=== PATIENT | male | born 1940 | race Caucasian/White ===

== ENCOUNTER 2021-01-16 21:57 | Emergency (ER) | payer OTHER, SELFPAY ==
[2021-01-16 22:14] VITALS: BP 162/112; PULSE 88; RESP 16; TEMP 36.4; O2SAT 99; BMI 23.7
--- NOTE | 2021-01-16 22:37 | XRR_ITS ---
PROCEDURE INFORMATION: Exam: XR Chest Exam date and time: 01/16/2021 10:37 PM Age: 80 years old Clinical indication: Dyspnea; Prior surgery; Surgery date: 6+ months; Surgery type: Pacemaker; Additional info: SOB TECHNIQUE: Imaging protocol: XR of the chest. Views: 1 view. COMPARISON: CR Chest 1 [place] [id number] 07/11/2016 10:11 AM FINDINGS: Tubes, catheters and devices: Pacemaker. Lungs: Emphysematous changes. Right hilar to lower lobe atelectasis versus minimal infiltrate. Pleural spaces: Unremarkable. No pleural effusion. No pneumothorax. Heart/Mediastinum: Cardiomegaly. Vasculature: Tortuous aorta Bones/joints: Unremarkable. XR/XR chest 1V portable [id number] IMPRESSION: 1. Cardiomegaly. 2. Emphysematous changes. 3. Right hilar to lower lobe atelectasis versus minimal infiltrate. 4. Tortuous aorta
[2021-01-16 23:01] VITALS: BP 141/95; PULSE 70; RESP 18; O2SAT 98
[2021-01-16 23:04] LABS: Basophils # 0.1 10^3/uL (0.0-0.1); Basophils % 1.5 %; Eosinophils # 0.2 10^3/uL (0.0-0.8); Eosinophils % 2.7 %; Hemoglobin 15.7 g/dL (11.7-16.6); Lymphocytes # 1.5 10^3/uL (0.8-4.8); Mean Corpuscular Hemoglobin 29.7 pg (28.0-34.0); Mean Corpuscular Volume 92.8 fL (80-94); Mean Platelet Volume 10.7 fL (7.4-10.4); Monocytes # 0.7 10^3/uL (0.2-0.9); Monocytes % 10.2 %; Neutrophils # 4.56 10^3/uL (1.8-7.7); Nucleated Red Blood Cells % 0 %; Platelet Count 233 10^3/cmm (130-400); Red Blood Count 5.28 10^6/uL (4.1-5.3); Red Cell Distribution Width 14.5 % (12.1-15.1); White Blood Count 7.1 10^3/uL (4.0-10.0)
--- NOTE | 2021-01-16 23:19 | ED_ITS ---
HPI - Chest Pain General: Chief Complaint: Chest Pain Stated Complaint: erratic heart rate Time Seen by Provider: 01/16/21 22:11 History of Present Illness: HPI narrative: 80-year-old gentleman with a history of pacemaker placement around 10 years ago. His battery is post to be checked in February. Of late, he has noticed his heart rate going lower. He says it was getting high, and his primary care physician increased his metoprolol from 50-100. He took 3 doses and noticed that it was getting too low, so stopped. He is back on the 50 twice a day. He notes that despite this, his heart rate gets down around 60 or sometimes a few beats below. He is worried that his pacemaker is not working appropriately. He denies any chest pain. He states he has been more short of breath lately. No history of coronary stent. MD complaint: other Pertinent past history: other Onset (ago): day(s) Timing of current episode: episodic Prior episodes: No Pain location: other Pain radiation: none Quality: other Relieving factors: nothing Exacerbating factors: nothing Context: new medications and other Associated symptoms: Reports dyspnea; Deny abdominal pain, diaphoresis, fever(s), leg edema, nausea, syncope or vomiting Treatment prior to arrival: none Review of Systems Const: Denies: fever(s) or diaphoresis Card: Reports: irregular heart rhythm, lightheadedness and dyspnea on exertion; Denies: chest pain, swelling of feet/ankles or syncope Resp: Reports: dyspnea; Denies: productive cough, non-productive cough or wheezing GI: Denies: abdominal pain, nausea or vomiting Neuro: Reports: dizziness; Denies: frequent falls, vertigo or confusion PFS ED PFSH: Medical History (Updated 01/17/21 @ 01:28 by Luis E Terrell DO) Atrial fibrillation CHF (congestive heart failure) Dizziness Hypothyroidism SSS (sick sinus syndrome) TIA (transient ischemic attack) Warfarin anticoagulation Surgical History Status cardiac pacemaker Family History Other Cancer Social History Smoking and tobacco status: former smoker Marital status: service: No Current occupational status: retired Physical Exam Const: COMMON NORMALS: no acute distress, patient oriented x3 and alert Eye: COMMON NORMALS: Equal, round and reactive pupils present and EOMs intact bilaterally PUPIL: Yes Equal, round and reactive pupils present Chest: COMMONS NORMALS: normal inspection of the chest Resp: COMMON NORMALS: normal respiratory effort, No use of accessory muscles and clear to auscultation bilaterally AUSCULTATION: clear to auscultation bilaterally Cardio: COMMON NORMALS: Peripheral pulses 2+ throughout RATE: not bradycardic and not tachycardic RHYTHM: abnormal rhythm irregularly irregular PERIPHERAL PULSES: Peripheral pulses 2+ throughout GI: COMMON NORMALS: Normal to inspection, nondistended, normoactive bowel sounds present, Soft to palpation and non-tender PALPATION: Yes Soft to palpation Extremity: GENERAL: No edema Neuro: COMMON NORMALS: patient oriented x3 SENSORIUM/ORIENTATION: Yes alert Course Vital Signs: Vital signs: Vital Signs Temperature 98.2 F 01/17/21 02:33 Pulse Rate 67 01/17/21 02:33 Respiratory Rate 18 01/17/21 02:33 Blood Pressure 128/77 01/17/21 02:33 Pulse Oximetry 93 01/17/21 02:33 MDM - Chest Pain MDM Narrative: Medical decision making narrative: 80-year-old gentleman who has been worried that his pacemaker is not functioning properly due to low heart rates. His pacer is set at 60. He seen rates in the 50s for short amounts of time. Here, he gets pacer spikes when the rate approaches 60. He is in atrial fibrillation otherwise. His troponin is not elevated. His other laboratory is benign. His pacer is interrogated, and is working appropriately. He will be allowed discharge Lab Data: Labs: Lab Results 01/16/21 01/16/21 01/16/21 Range/Units 22:50 22:50 22:50 WBC 7.1 (4.0-10.0) 10^3/ uL RBC 5.28 (4.1-5.3) 10^6/u L Hgb 15.7 (11.7-16.6) g/dL Hct 49.0 (42.0-52.0) % MCV 92.8 (80-94) fL MCH 29.7 (28.0-34.0) pg MCHC 32.0 (30.0-36.0) g/dL RDW 14.5 (12.1-15.1) % Plt Count 233 (130-400) 10^3/c mm MPV 10.7 H (7.4-10.4) fL Neut % (Auto) 64.0 % Lymph % (Auto) 21.0 % [place] % (Auto) 10.2 % Eos % (Auto) 2.7 % Baso % (Auto) 1.5 % Neut # (Auto) 4.56 (1.8-7.7) 10^3/u L Lymph # (Auto) 1.5 (0.8-4.8) 10^3/u L [place] # (Auto) 0.7 (0.2-0.9) 10^3/u L Eos # (Auto) 0.2 (0.0-0.8) 10^3/u L Baso # (Auto) 0.1 (0.0-0.1) 10^3/u L Nucleated RBC % (a uto) 0 % Nucleated RBCs # 0.0 /100WBC PT (12.1-14.9) SECO NDS INR (0.8-1.2) Sodium Cancelled Potassium Cancelled Chloride Cancelled Carbon Dioxide Cancelled Anion Gap Cancelled BUN Cancelled Creatinine Cancelled GFR Calculation Cancelled Glucose Cancelled Calculated Osmolal ity Cancelled Calcium Cancelled Total Bilirubin Cancelled AST Cancelled ALT Cancelled Alkaline Phosphata se Cancelled Creatine Kinase Cancelled Troponin T Baselin e Cancelled NT-Pro-B Natriuret Pep Cancelled Total Protein Cancelled Albumin Cancelled Globulin Cancelled 01/16/21 01/16/21 01/16/21 Range/Units 23:24 23:24 23:24 WBC (4.0-10.0) 10^3/ uL RBC (4.1-5.3) 10^6/u L Hgb (11.7-16.6) g/dL Hct (42.0-52.0) % MCV (80-94) fL MCH (28.0-34.0) pg MCHC (30.0-36.0) g/dL RDW (12.1-15.1) % Plt Count (130-400) 10^3/c mm MPV (7.4-10.4) fL Neut % (Auto) % Lymph % (Auto) % [place] % (Auto) % Eos % (Auto) % Baso % (Auto) % Neut # (Auto) (1.8-7.7) 10^3/u L Lymph # (Auto) (0.8-4.8) 10^3/u L [place] # (Auto) (0.2-0.9) 10^3/u L Eos # (Auto) (0.0-0.8) 10^3/u L Baso # (Auto) (0.0-0.1) 10^3/u L Nucleated RBC % (a uto) % Nucleated RBCs # /100WBC PT 21.60 H (12.1-14.9) SECO NDS INR 1.84 H (0.8-1.2) Sodium Cancelled Potassium Cancelled Chloride Cancelled Carbon Dioxide Cancelled Anion Gap Cancelled BUN Cancelled Creatinine Cancelled GFR Calculation Cancelled Glucose Cancelled Calculated Osmolal ity Cancelled Calcium Cancelled Total Bilirubin Cancelled AST Cancelled ALT Cancelled Alkaline Phosphata se Cancelled Creatine Kinase Cancelled Troponin T Baselin e 11 NT-Pro-B Natriuret Pep Cancelled Total Protein Cancelled Albumin Cancelled Globulin Cancelled 01/17/21 Range/Units 00:31 WBC (4.0-10.0) 10^3/ uL RBC (4.1-5.3) 10^6/u L Hgb (11.7-16.6) g/dL Hct (42.0-52.0) % MCV (80-94) fL MCH (28.0-34.0) pg MCHC (30.0-36.0) g/dL RDW (12.1-15.1) % Plt Count (130-400) 10^3/c mm MPV (7.4-10.4) fL Neut % (Auto) % Lymph % (Auto) % [place] % (Auto) % Eos % (Auto) % Baso % (Auto) % Neut # (Auto) (1.8-7.7) 10^3/u L Lymph # (Auto) (0.8-4.8) 10^3/u L [place] # (Auto) (0.2-0.9) 10^3/u L Eos # (Auto) (0.0-0.8) 10^3/u L Baso # (Auto) (0.0-0.1) 10^3/u L Nucleated RBC % (a uto) % Nucleated RBCs # /100WBC PT (12.1-14.9) SECO NDS INR (0.8-1.2) Sodium 136 Potassium 4.5 Chloride 100 Carbon Dioxide 28 Anion Gap 12.5 BUN 17 Creatinine 1.1 GFR Calculation Not Reportable Glucose 107 Calculated Osmolal ity 284 L Calcium 9.0 Total Bilirubin 0.6 AST 9 ALT 6 Alkaline Phosphata se 131 H Creatine Kinase 36 L Troponin T Baselin e NT-Pro-B Natriuret Pep 1818 H Total Protein 6.6 Albumin 3.4 L Globulin 3.2 Discharge Plan Discharge Patient Disposition: Home Clinical Impression: Atrial fibrillation Qualifiers: Atrial fibrillation type: longstanding persistent Qualified Code(s): I48.11 - Longstanding persistent atrial fibrillation Condition: Stable Prescriptions: No Action tamsulosin 0.4 mg capsule 0.4 mg PO DAILY RF: 0 meclizine 25 mg tablet 25 mg PO TID PRNRF: 0 baclofen 10 mg tablet 10 mg PO TID PRNRF: 0 docusate sodium [Colace] 100 mg capsule 100 mg PO BID RF: 0 atorvastatin 10 mg tablet 5 mg PO DAILY RF: 0 omeprazole 20 mg capsule,delayed release(DR/EC) 20 mg PO DAILY RF: 0 quetiapine 25 mg tablet 12.5 mg PO DAILY RF: 0 memantine 10 mg tablet 10 mg PO BID RF: 0 levothyroxine 125 mcg capsule 125 mcg PO DAILY RF: 0 aspirin [Aspir-81] 81 mg tablet,delayed release (DR/EC) 81 mg PO DAILY RF: 0 warfarin 2 mg tablet 2 mg PO DAILY RF: 0 warfarin 3 mg tablet 3 mg PO DAILY RF: 0 metoprolol tartrate 50 mg tablet 50 mg PO BID Qty: 60 RF: 6 Discharge Orders: Discharge ED (Routine); Ordered 01/17/21 Ordered By: Luis E Terrell Referrals: Chris Art M.D [Physician] - 4-7 days Ramon Verde MD [Primary Care Provider] - Patient Instructions: Atrial Fibrillation (ED) Activity Restrictions/Additional Instructions: Return for chest discomfort, worsening shortness of breath, leg swelling, etc. Call your heart doctor on Monday, and let them know you were here, as more outpatient tests may be needed. Coding Level of Care Code ED Cumulative Effects Analyst for Chg Fwd Exam Detailed
[2021-01-17 00:01] LABS: INR 1.84 (0.8-1.2)
[2021-01-17 00:02] LABS: Troponin(5th) Baseline 11 ng/L (0-15)
[2021-01-17 01:03] LABS: Alanine Aminotransferase 6 U/L (0-41); Albumin Level 3.4 g/dL (3.5-5.2); Alkaline Phosphatase 131 IU/L (40-130); Anion Gap 12.5 (5-19); Aspartate Amino Transferase 9 U/L (0-40); Blood Urea Nitrogen 17 mg/dL (8-23); Carbon Dioxide 28 mmol/L (22-29); Chloride 100 mmol/L (98-107); Creatine Phosphokinase 36 U/L (39-308); Creatinine Clr Calc Pharmacy 55.6744; Globulin 3.2 g/dL (1.3-4.6); Glucose 107 mg/dL (65-115); NT Pro B Type Natriuretic Pept 1818 pg/mL (0-450); Osmolality Calculated 284 mOsm/kg (285-295); Potassium 4.5 mmol/L (3.5-5.1); Sodium 136 mmol/L (136-145); Total Bilirubin 0.6 mg/dL (0.15-1.2); Total Protein 6.6 g/dL (6.6-8.7)
[2021-01-17 02:33] VITALS: BP 128/77; PULSE 67; RESP 18; TEMP 36.8; O2SAT 93
== END 2021-01-17 02:45 | disposition home or self-care (01) ==
PROVIDERS: Emergency Provider Emergency Medicine; PCP Family Medicine
DX: I48.11 Longstanding persistent atrial fibrillation (principal); Z79.82 Long term (current) use of aspirin; Z79.01 Long term (current) use of anticoagulants; I50.9 Heart failure, unspecified; Z86.73 Personal history of transient ischemic attack (TIA), and cerebral infarction without residual deficits; Z95.0 Presence of cardiac pacemaker; Z87.891 Personal history of nicotine dependence
CPT/HCPCS: 36415; 71045; 80053; 82550; 83880; 84484; 85025; 85610; 99283

== ENCOUNTER 2021-02-19 15:41 | Outpatient (CLI) | payer MEDICARE, SELFPAY ==
--- NOTE | 2021-02-19 15:45 | USCV_ITS ---
Chris Flores Age: 81 Gender: M : 1940 Exam Date: 02/19/2021 16:15 Ordering Phys: Chris Art M.D ([email or web address]) Technologist: Sierra Gonzalez Exam Location: [facility] [place] Indication: SHORTNESS OF BREATH BP: 132 / 80 HR: 72 Rhythm: Sinus Technical Quality: Technically difficult study MEASUREMENTS (Male / Female) Normal Values 2D ECHO LV Diastolic Diameter PLAX 2.8 cm 4.2 - 5.9 / 3.9 - 5.3 cm LV Systolic Diameter PLAX 1.9 cm IVS Diastolic Thickness 1.1 cm 0.6 - 1.0 / 0.6 - 0.9 cm IVS Systolic Thickness 1.2 cm LVPW Diastolic Thickness 0.9 cm 0.6 - 1.0 / 0.6 - 0.9 cm LVPW Systolic Thickness 1.3 cm RV Chamber Size 2.9 cm LVOT Diameter 2.0 cm LV Ejection Fraction 2D Teich 60.1 % LV Ejection Fraction MOD 2C 56.5 % LV Ejection Fraction 2C AL 56.3 % LA Diameter 3.4 cm LA Width 3.7 cm LA Height 6.2 cm RA Width 5.0 cm RA Height 5.6 cm Aorta at Sinotubular Diameter 2.8 cm DOPPLER AV Peak Velocity 104.0 cm/s LVOT Peak Velocity 77.0 cm/s AV Area Cont Eq vti 2.8 cm squared AV Area Cont Eq pk 2.3 cm squared TR Peak Velocity 285.7 cm/s TR Peak Gradient 32.6 mmHg TV Peak E Velocity 53.0 cm/s Right Atrial Pressure 8.0 mmHg Pulmonary Artery Systolic Pressu 40.6 mmHg PV Peak Velocity 68.0 cm/s FINDINGS Left Ventricle Normal left ventricular size. LV systolic function is normal with EF of 55-60%. No regional wall motion abnormalities. Diastolic function is indeterminate Right Ventricle The right ventricle is normal in size and function. Pacemaker wire is seen Right Atrium The right atrium is normal in size. Pacemaker wire is seen Left Atrium The left atrium is mildly dilated Mitral Valve Structurally normal mitral valve without significant stenosis or prolapse. There is trace mitral regurgitation. Aortic Valve Structurally normal aortic valve without significant sclerosis or stenosis. There is mild aortic regurgitation. Tricuspid Valve Structurally normal tricuspid valve without significant stenosi. Mild tricuspid regurgitation. RVSP is 40-45mmHg. This is consistent with mild pulmonary hypertension Pulmonic Valve Structurally normal pulmonic valve without significant stenosis. There is trace pulmonic regurgitation. Pericardium Normal pericardium without effusion. Aorta Normal ascending aorta dimension. CONCLUSIONS LV systolic function is normal with EF of 55-60% Mildly dilated left atrium Trace mitral regurgitation Mild aortic regurgitation Mild pulmonary hypertension Trace pulmonic regurgitation No comparison studies are available Chris Atr MD (Electronically Signed) Final Date: 01 March 2021 12:28 S
== END 2021-02-19 15:42 | disposition home or self-care (01) ==
PROVIDERS: PCP Family Medicine; Visit Provider Internal Medicine
DX: R06.02 Shortness of breath (principal); I08.0 Rheumatic disorders of both mitral and aortic valves; I27.20 Pulmonary hypertension, unspecified
CPT/HCPCS: 93306

== ENCOUNTER → 2021-09-24 08:53 | Outpatient (BNVA) | payer MEDICARE, SELFPAY | PROVIDERS: PCP Family Medicine; Visit Provider Internal Medicine | DX: Z79.01 Long term (current) use of anticoagulants (principal) ==

== ENCOUNTER → 2021-09-29 09:21 | Outpatient (BNVA) | payer MEDICARE, SELFPAY | PROVIDERS: PCP Family Medicine; Visit Provider Internal Medicine | DX: Z79.01 Long term (current) use of anticoagulants (principal) ==

== ENCOUNTER → 2021-10-07 11:22 | Outpatient (BNVA) | payer MEDICARE, SELFPAY | PROVIDERS: PCP Family Medicine; Visit Provider Internal Medicine | DX: Z79.01 Long term (current) use of anticoagulants (principal) ==

== ENCOUNTER → 2021-10-12 09:26 | Outpatient (BNVA) | payer MEDICARE, SELFPAY | PROVIDERS: PCP Family Medicine; Visit Provider Internal Medicine | DX: I48.11 Longstanding persistent atrial fibrillation (principal); Z79.01 Long term (current) use of anticoagulants ==

== ENCOUNTER → 2021-10-22 08:39 | Outpatient (BNVA) | payer MEDICARE, SELFPAY | PROVIDERS: PCP Family Medicine; Visit Provider Internal Medicine | DX: Z79.01 Long term (current) use of anticoagulants (principal) ==

== ENCOUNTER → 2021-10-29 13:29 | Outpatient (BNVA) | payer MEDICARE, SELFPAY | PROVIDERS: PCP Family Medicine; Visit Provider Internal Medicine | DX: Z79.01 Long term (current) use of anticoagulants (principal) ==

== ENCOUNTER → 2021-11-03 07:59 | Outpatient (BNVA) | payer MEDICARE, SELFPAY | PROVIDERS: PCP Family Medicine; Visit Provider Internal Medicine | DX: Z79.01 Long term (current) use of anticoagulants (principal) ==

== ENCOUNTER → 2021-11-10 09:59 | Outpatient (BNVA) | payer MEDICARE, SELFPAY | PROVIDERS: PCP Family Medicine; Visit Provider Internal Medicine | DX: Z79.01 Long term (current) use of anticoagulants (principal) ==

== ENCOUNTER → 2021-11-17 10:09 | Outpatient (BNVA) | payer MEDICARE, SELFPAY | PROVIDERS: PCP Family Medicine; Visit Provider Internal Medicine | DX: Z79.01 Long term (current) use of anticoagulants (principal) ==

== ENCOUNTER → 2021-11-26 08:38 | Outpatient (BNVA) | payer MEDICARE, SELFPAY | PROVIDERS: PCP Family Medicine; Visit Provider Internal Medicine | DX: Z79.01 Long term (current) use of anticoagulants (principal) ==

== ENCOUNTER → 2021-12-01 09:11 | Outpatient (BNVA) | payer MEDICARE, SELFPAY | PROVIDERS: PCP Family Medicine; Visit Provider Internal Medicine | DX: Z79.01 Long term (current) use of anticoagulants (principal) ==

== ENCOUNTER → 2021-12-09 08:49 | Outpatient (BNVA) | payer MEDICARE, SELFPAY | PROVIDERS: PCP Family Medicine; Visit Provider Internal Medicine | DX: Z79.01 Long term (current) use of anticoagulants (principal) ==

== ENCOUNTER → 2021-12-17 09:45 | Outpatient (BNVA) | payer MEDICARE, SELFPAY | PROVIDERS: PCP Family Medicine; Visit Provider Internal Medicine | DX: Z79.01 Long term (current) use of anticoagulants (principal) ==

== ENCOUNTER → 2021-12-22 09:23 | Outpatient (BNVA) | payer MEDICARE, SELFPAY | PROVIDERS: PCP Family Medicine; Visit Provider Internal Medicine | DX: Z79.01 Long term (current) use of anticoagulants (principal) ==

== ENCOUNTER → 2021-12-23 14:00 | Outpatient (BNVA) | payer MEDICARE, SELFPAY | PROVIDERS: PCP Family Medicine; Visit Provider Internal Medicine Cardiovascular Disease | DX: Z95.0 Presence of cardiac pacemaker (principal); Z79.01 Long term (current) use of anticoagulants; I50.9 Heart failure, unspecified; I48.11 Longstanding persistent atrial fibrillation; I48.91 Unspecified atrial fibrillation; Z86.73 Personal history of transient ischemic attack (TIA), and cerebral infarction without residual deficits; Z87.891 Personal history of nicotine dependence; I49.5 Sick sinus syndrome; R42 Dizziness and giddiness; Z01.812 Encounter for preprocedural laboratory examination | CPT/HCPCS: 36415; 80048; 83880; 85025; 85610; 86850; 86900; 99215 ==

== ENCOUNTER 2021-12-24 15:12 | Observation (INO) | payer MEDICARE, SELFPAY ==
[2021-12-24] VITALS (29 sets, daily range): BP systolic 126–171; BP diastolic 67–104; PULSE 60–78; RESP 13–25; TEMP 36.4–36.7; O2SAT 88–98; BMI 23.8
--- NOTE | 2021-12-24 07:04 | W.PM.OPSUD ---
Surgery/Procedure H&P Update DATE OF PROCEDURE: December 24, 2021 DATE H&P PERFORMED: 12/23/21 H&P UPDATE INFORMATION: I have reviewed H&P completed within last 30 days, I have examined patient prior to procedure and No changes to prior documentation PREOP DIAGNOSIS: Pacemaker RADHA/sick sinus syndrome/Afib PRIMARY INDICATION FOR PROCEDURE: Symptomatic bradycardia/pacemaker RADHA PLANNED PROCEDURE: Operation Date: 12/24/21 07:00 Proposed Procedures p Pacemaker Generator Change(Left) - Mikey Dillard MD PHYSICAL EXAM: alert, oriented x 3, clear to auscultation bilaterally and regular rate & rhythm AIRWAY EVAL/ANESTHESIA PLAN: normal airway, see other exam findings, ASA III, Monitored Anesthesia, Local Anesthesia, Risks, benefits & alternatives of sedation and/or procedure discussed and Patient agrees to continue as planned
--- NOTE | 2021-12-24 07:49 | P.OP_ITS ---
Operative Report Date of procedure: December 24, 2021 Pre-op diagnosis: Preop Diagnosis Pacemaker RADHA/sick sinus syndrome/Afib Procedure: PROCEDURE: PACEMAKER REVISION PREOPERATIVE DIAGNOSIS: Pacemaker elective replacement indication. POSTOPERATIVE DIAGNOSIS: Pacemaker elective replacement indication. ESTIMATED BLOOD LOSS: None COMPLICATIONS: None. BRIEF HISTORY: The patient is 81-year-old white male who had a permanent pacemaker implantation for symptomatic bradycardia/sick sinus syndrome/intermittent atrial fibrillation. The patient was found to have elective replacement indication, during routine office followup evaluation. For further management of patient's condition he required a pacemaker revision. The procedure was explained to the patient and his in detail with the risks and benefits. The risks of bleeding, hematoma, vascular injury, infection and other concomitant complications were explained in detail, which the patient understood well and consented to proceed. He requires a dual-chamber pacer for AV synchrony and symptom relief PROCEDURES PERFORMED: 1. Explantation of the old pacemaker generator. 2. Implantation of the new generator. The patient brought to the Cardiac Chemical Production Engineer. The left side of the neck and the subclavian area were cleaned and draped in a sterile fashion. 1% Xylocaine was used for local anesthetic agent. A 2 inch long incision was made just below the previous pacemaker scar. By sharp and blunt dissection, the pacemaker pocket was accessed. The old generator was delivered from the pocket. The generator was detached from the leads. The new Medtronic generator was attached to the lead. The pacemaker pocket was copiously irrigated with vancomycin solution. Complete hemostasis was achieved. The leads were positioned behind the generator and the generator was attached to the pectoralis fascia by suturing with 0 Surgilon. Sponge counts were confirmed. The pacemaker pocket was closed in layers. Skin was approximated using 4-0 Vicryl. EXPLANTED DEVICE: Pacemaker Generator: Brand: Sensia. Model number: [id number]. Serial number: [id number] Date of implant: 02/05/2010 IMPLANTED DEVICES: Ventricular Lead: Date of implantation: 02/05/2010 Model number: 5076/58 Serial number: [id number] Make: Medtronic. Atrial lead: Date of implantation: 02/05/2010 Model number: 5076/52 Serial number: [id number] Make: Medtronic Implanted Generator: Date of implantation : 12/24/2021 Brand: Mary Carmen Purdy. Model number: W1 DR 01 Serial number: [id number] Make: Matthew Kenney Cuisinetronic Stimulation Threshold: The ventricular sensing was 6.5 millivolts. Lead impedance was 456 and the pacing threshold was 1.0 volts at 0.4 milliseconds. The atrial lead sensing was 0.6(patient was in atrial fibrillation). The lead impedance of 380 ohms. Capture threshold was not obtained because of the atrial fibrillation The pacemaker was set for DDDR mode with an upper rate of 130 and a lower rate of 60. Automatic mode switch was turned on A pressure dressing was applied over the pacemaker site. The patient was transferred back to medical floor in stable condition. Sponge counts were correct.
--- NOTE | 2021-12-24 07:55 | PC.NURSE ---
Post Generator change Pt received to CPRU room 3 post pacemaker generator change. Pressure dressing intact to L subclavian, no hematoma or bleeding noted. Alert and oriented, denies pain. at bedside. Pt paced with HR of 67 on monitor.
[2021-12-24] MEDS: metoprolol tartrate 50 mg Tablet PO (17:57)
[2021-12-24] MEDS: memantine 5 mg tablet 10 MG PO (17:58)
[2021-12-24] MEDS: docusate sodium 100 mg Capsule PO (17:58)
[2021-12-24] MEDS: sodium chloride 0.9% 1,000 ML 75 ML IV (23:09)
[2021-12-25 03:30] VITALS: BP 150/84; PULSE 82; RESP 18; TEMP 36.8; O2SAT 95
--- NOTE | 2021-12-25 06:00 | ECG_ITS ---
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 Measurements Intervals [place] Rate: 62 P: [place]: QRS: 40 QRSD: 106 T: -70 QT: 415 QTc: 423 Interpretive Statements Atrial fibrillation with demand V paced rhythm. ELECTRONIC VENTRICULAR PACEMAKER -- CONTOUR ANALYSIS BASED ON INTRINSIC RHYTHM INCOMPLETE RIGHT BUNDLE BRANCH BLOCK [90+ ms QRS DURATION, TERMINAL R IN V1/V2, 40+ ms S IN I/aVL/V4/V5/V6] ST DEVIATION AND MARKED T-WAVE ABNORMALITY, CONSIDER ANTEROLATERAL ISCHEMIA [-0.5+ mV T-WAVE IN I/aVL/V3-V6] ST DEVIATION AND MODERATE T-WAVE ABNORMALITY, CONSIDER INFERIOR ISCHEMIA [-0.1+ mV T-WAVE IN II/aVF] Compared to ECG 12/12/2015 04:46:37 Incomplete right bundle-branch block now present Atrial fibrillation no longer present T-wave abnormality still present Possible ischemia still present Electronically Signed On 12-25-2021 19:05:45 CDT by Mikey Dillard M.D. [email or web address]
[2021-12-25 07:28] VITALS: BP 160/87; PULSE 61; RESP 16; TEMP 36.3; O2SAT 97
[2021-12-25] MEDS: metoprolol tartrate 50 mg Tablet PO (09:06)
[2021-12-25] MEDS: docusate sodium 100 mg Capsule PO (09:07)
[2021-12-25] MEDS: aspirin 81 mg EC Tablet PO (09:07)
[2021-12-25] MEDS: memantine 5 mg tablet 10 MG PO (09:07)
[2021-12-25] MEDS: pantoprazole DR 40 mg Tablet 20 MG PO (09:07)
[2021-12-25] MEDS: levothyroxine 125 mcg Tablet PO (09:07)
[2021-12-25] MEDS: tamsulosin 0.4 mg Capsule PO (09:07)
[2021-12-25] MEDS: atorvastatin 40 mg Tablet 20 MG PO (09:08)
[2021-12-25] MEDS: quetiapine 25 mg Tablet 12.5 MG PO (09:08)
--- NOTE | 2021-12-25 09:55 | P.PN_ITS ---
Subjective Subjective: This patient was admitted to the hospital following the pacemaker revision, for IV antibiotics and monitoring. Patient received 3 doses of IV cefazolin after the pacemaker plantation. He tolerated the medication well. He has not had a bleeding complications. His vital signs remained stable. Medications: Medication Review Details: Current Medications Aspirin (Aspirin 81 Mg Ec Tablet) 81 mg PO DAILY [facility] Last Admin: 12/25/21 09:07 Dose: 81 mg Documented by: Atorvastatin Calcium (Atorvastatin 40 Mg Tablet) 20 mg PO DAILY [facility] Last Admin: 12/25/21 09:08 Dose: 20 mg Documented by: Baclofen (Baclofen 10 Mg Tablet) 10 mg PO TID PRN PRN Reason: Muscle Spasm Docusate Sodium (Docusate Sodium 100 Mg Capsule) 100 mg PO BID [facility] Last Admin: 12/25/21 09:07 Dose: 100 mg Documented by: Sodium Chloride (Sodium Chloride 0.9%) 1,000 mls @ 75 mls/hr IV .[id number] [facility] Last Admin: 12/24/21 23:09 Dose: 75 mls/hr Documented by: Levothyroxine Sodium (Levothyroxine 125 Mcg Tablet) 125 mcg PO DAILY [facility] Last Admin: 12/25/21 09:07 Dose: 125 mcg Documented by: Meclizine HCl (Meclizine 25 Mg Tablet) 25 mg PO TID PRN PRN Reason: Dizziness Memantine (Memantine 5 Mg Tablet) 10 mg PO BID [facility] Last Admin: 12/25/21 09:07 Dose: 10 mg Documented by: Metoprolol Tartrate (Metoprolol Tartrate 50 Mg Tablet) 50 mg PO BID [facility] Last Admin: 12/25/21 09:06 Dose: 50 mg Documented by: Oxycodone/Acetaminophen (Oxycodone-Apap 5-325 Mg Tablet) 1 tab PO Q4H PRN PRN Reason: MODERATE TO SEVERE PAIN Pantoprazole Sodium (Pantoprazole Dr 40 Mg Tablet) 20 mg PO DAILY [facility] Last Admin: 12/25/21 09:07 Dose: 20 mg Documented by: Quetiapine Fumarate (Quetiapine 25 Mg Tablet) 12.5 mg PO DAILY [facility] Last Admin: 12/25/21 09:08 Dose: 12.5 mg Documented by: Tamsulosin HCl (Tamsulosin 0.4 Mg Capsule) 0.4 mg PO DAILY [facility] Last Admin: 12/25/21 09:07 Dose: 0.4 mg Documented by: Vitals/I&O/Wt Last Vital Signs Temp 97.4 F L 12/25/21 07:28 Pulse 61 12/25/21 07:28 Resp 16 12/25/21 07:28 BP 160/87 12/25/21 07:28 Pulse Ox 97 12/25/21 07:28 12/24/21 12/25/21 12/25/21 22:59 06:59 14:59 Intake Total 610 / 610 200 / 810 170 / 170 Output Total 550 / 550 Balance 610 / 610 -350 / 260 170 / 170 Weight last 48 hrs Weight 171 lb Weight 171 lb Physical Exam Narrative: GENERAL: The patient is alert and oriented times three. Not in any acute distress. HEENT: No significant pallor, icterus or lymphadenopathy.Oral cavity: There are no mucous membrane lesions. NECK: Trachea appears to be central. No masses noted. No JVD or thyromegaly appreciated. RESPIRATORY: Chest is symmetrical. No intercostals muscle retraction or any accessory muscle activation. There is no chest wall tenderness. Breath sounds are heard bilaterally. No rales or rhonchi heard. No evidence of any consolidation. BREASTS: Deferred. HEART: The heart sounds are normal. No S3 or S4. No significant murmurs. No pericardial rub ABDOMEN: No vessel pulsations or distention. No tenderness. No organomegaly appreciated. Bowel sounds are normally heard. : Deferred. RECTAL: Deferred. LYMPHATIC: No lymphadenopathy noted in the neck. EXTREMITIES: No edema or cyanosis. No clubbing. MUSCULOSKELETAL: No acute joint deformities or swelling SKIN: There are no significant rashes or ecchymosis NEUROPSYCHIATRIC: The patient is alert and oriented x3. Appears to be in a good mood. No tremors or rigidity noted. A&P Assessment and plan (1) Pacemaker at end of battery life: Patient had a pacemaker revision yesterday. Further details of the procedure please refer to the report from yesterday. Patient is given the post pacer implantation instructions. He will go home with antibiotics for 5 days. He will be seen at the clinic next week by the nurse practitioner for a wound check and pacemaker check. Status: Acute (2) Warfarin anticoagulation: Patient may restart the cardiac catheterization will have a an INR in the office next week at the time of his appointment. Status: Acute (3) Atrial fibrillation: Advised to continue with advised to continue on the current medications. Status: Acute Qualifiers: Atrial fibrillation type: longstanding persistent Qualified Code(s): I48.11 - Longstanding persistent atrial fibrillation Plan Other problems are as outlined before. Attestations Medical Necessity Statement*: patient is being discharged home today Coding Level of Care Code Acute Wood Heel Fitter Machine for g Fwd History Expanded Problem Focused Exam Expanded Problem Focused Medical Decision Making Moderate Complexity Diagnoses Pacemaker at end of battery life Z45.010 Warfarin anticoagulation Z79.01 Atrial fibrillation I48.11 Atrial fibrillation type: longstanding persistent
[2021-12-25 11:41] VITALS: BP 147/79; PULSE 65; RESP 16; TEMP 36.7; O2SAT 97
[2021-12-25 14:36] VITALS: BP 147/79; PULSE 65; RESP 16; TEMP 36.7; O2SAT 97
== END 2021-12-25 12:30 | disposition home or self-care (01) ==
LOC: MEDSURG 15:13
PROVIDERS: Admitting Provider Internal Medicine Cardiovascular Disease; PCP Family Medicine; Visit Provider Internal Medicine Cardiovascular Disease
DX: Z45.010 Encounter for checking and testing of cardiac pacemaker pulse generator [battery] (principal); I48.11 Longstanding persistent atrial fibrillation; Z79.01 Long term (current) use of anticoagulants; Z79.82 Long term (current) use of aspirin; E03.9 Hypothyroidism, unspecified; I50.9 Heart failure, unspecified; Z86.73 Personal history of transient ischemic attack (TIA), and cerebral infarction without residual deficits; Z87.891 Personal history of nicotine dependence
CPT/HCPCS: 33213; 36415; 93005; 96360; 97165; 99152; 99153; A4565; C1769; C1786; G0378; J2250; J3010; J7030; J7050

== ENCOUNTER → 2021-12-30 09:05 | Outpatient (BNVA) | payer MEDICARE, SELFPAY | PROVIDERS: PCP Family Medicine; Visit Provider Internal Medicine | DX: Z79.01 Long term (current) use of anticoagulants (principal) ==

== ENCOUNTER → 2021-12-31 11:25 | Outpatient (BNVA) | payer MEDICARE, SELFPAY | PROVIDERS: PCP Family Medicine; Visit Provider Nurse Practitioner Family | DX: Z09 Encounter for follow-up examination after completed treatment for conditions other than malignant neoplasm (principal); Z95.0 Presence of cardiac pacemaker; I50.9 Heart failure, unspecified; Z87.891 Personal history of nicotine dependence; Z79.01 Long term (current) use of anticoagulants; Z86.73 Personal history of transient ischemic attack (TIA), and cerebral infarction without residual deficits | CPT/HCPCS: 99213; 99214 ==

== ENCOUNTER → 2022-01-06 17:20 | Outpatient (BNVA) | payer MEDICARE, SELFPAY | PROVIDERS: PCP Family Medicine; Visit Provider Internal Medicine | DX: Z79.01 Long term (current) use of anticoagulants (principal) ==

== ENCOUNTER → 2022-01-13 12:38 | Outpatient (BNVA) | payer MEDICARE, SELFPAY | PROVIDERS: PCP Family Medicine; Visit Provider Internal Medicine | DX: Z79.01 Long term (current) use of anticoagulants (principal) ==

== ENCOUNTER → 2022-01-18 12:05 | Outpatient (BNVA) | payer MEDICARE, SELFPAY | PROVIDERS: PCP Family Medicine; Visit Provider Internal Medicine | DX: I95.9 Hypotension, unspecified (principal); R42 Dizziness and giddiness; I50.9 Heart failure, unspecified; I48.11 Longstanding persistent atrial fibrillation; Z79.01 Long term (current) use of anticoagulants; Z95.0 Presence of cardiac pacemaker; Z87.891 Personal history of nicotine dependence; Z86.73 Personal history of transient ischemic attack (TIA), and cerebral infarction without residual deficits | CPT/HCPCS: 99214 ==

== ENCOUNTER → 2022-01-21 11:09 | Outpatient (BNVA) | payer MEDICARE, SELFPAY | PROVIDERS: PCP Family Medicine; Visit Provider Internal Medicine | DX: Z79.01 Long term (current) use of anticoagulants (principal) ==

== ENCOUNTER → 2022-01-28 09:10 | Outpatient (BNVA) | payer MEDICARE, SELFPAY | PROVIDERS: PCP Family Medicine; Visit Provider Internal Medicine | DX: Z79.01 Long term (current) use of anticoagulants (principal) ==

== ENCOUNTER → 2022-02-02 09:03 | Outpatient (BNVA) | payer MEDICARE, SELFPAY | PROVIDERS: PCP Family Medicine; Visit Provider Internal Medicine | DX: Z79.01 Long term (current) use of anticoagulants (principal) ==

== ENCOUNTER → 2022-02-08 10:39 | Outpatient (BNVA) | payer MEDICARE, SELFPAY | PROVIDERS: PCP Family Medicine; Visit Provider Internal Medicine | DX: Z79.01 Long term (current) use of anticoagulants (principal) ==

== ENCOUNTER → 2022-04-22 10:10 | Outpatient (BNVA) | payer MEDICARE, SELFPAY | PROVIDERS: PCP Family Medicine; Visit Provider Nurse Practitioner Family | DX: I48.11 Longstanding persistent atrial fibrillation (principal); Z95.0 Presence of cardiac pacemaker | CPT/HCPCS: 93280; 99213 ==

== ENCOUNTER → 2022-07-19 13:59 | Outpatient (BNVA) | payer MEDICARE, SELFPAY | PROVIDERS: PCP Family Medicine; Visit Provider Internal Medicine | DX: I95.9 Hypotension, unspecified (principal); R42 Dizziness and giddiness; I50.9 Heart failure, unspecified; I49.5 Sick sinus syndrome; I48.11 Longstanding persistent atrial fibrillation; Z79.01 Long term (current) use of anticoagulants; Z87.891 Personal history of nicotine dependence; Z95.0 Presence of cardiac pacemaker | CPT/HCPCS: 99214 ==

== ENCOUNTER → 2023-01-18 14:03 | Outpatient (BNVA) | payer MEDICARE, SELFPAY | PROVIDERS: PCP Family Medicine; Visit Provider Internal Medicine | DX: I95.9 Hypotension, unspecified (principal); Z95.0 Presence of cardiac pacemaker; I50.9 Heart failure, unspecified; I48.11 Longstanding persistent atrial fibrillation; Z79.01 Long term (current) use of anticoagulants; Z79.82 Long term (current) use of aspirin; Z87.891 Personal history of nicotine dependence | CPT/HCPCS: 99214 ==

== ENCOUNTER 2023-02-09 08:48 | Outpatient (CLI) | payer MEDICARE, SELFPAY ==
--- NOTE | 2023-02-09 | ECG_ITS ---
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 Interpretive Statements NAME OF STUDY: LEXISCAN SESTAMIBI STRESS TEST INDICATION: [Chest Pain; Shortness of Breath, ] Procedure: At the baseline, the blood pressure was 122/83 mmHg with a heart rate of 66 bpm. The electrocardiogram showed atrial fibrillation with PVCs. LVH changes seen. The Lexiscan was infused over a period of 20 seconds. A total of 0.4 mg of Lexiscan was infused. The stress phase was continued for a total of 5 minutes. Heart rate was at the end of stress phase was 67 bpm and a blood pressure of 127/69 mmHg. The EKG at the peak infusion revealed atrial fibrillation with PVCs. Sestamibi was injected 20 seconds after the Lexiscan infusion. Blood pressure at the end of recovery phase was 128/73 mmHg with a heart rate of 79 bpm. Conclusion: 1. Normal EKG response to Lexiscan infusion 2. No Lexiscan induced chest pain or cardiac arrhythmia. 3. Normal blood pressure and heart rate response. 4. Sestamibi/sestamibi perfusion scan pending; see separate report. Electronically Signed On 03-07-2023 11:00:46 CDT by Chris Art M.D. [id number]
[2023-02-09 08:59] VITALS: BMI 23.7
--- NOTE | 2023-02-09 09:13 | NMCV_ITS ---
NM rupali perf SPECT r/s* [id number] Chris Flores Age: 83 Gender: M : 1940 Exam Date: 02/09/2023 09:13 Ordering Phys: Chris Art M.D ([email or web address]) Technologist: CAROL ANN Conklin Exam Location: [facility] Indications: SHORTNESS OF BREATH, CHEST PAIN STRESS TEST Please see separate stress test report in Ephiphany for full findings IMAGE PROTOCOL Rest/Stress 1 Lexiscan Day Radiopharmaceutical Dose (mCi) Administration Site Administered by Rest: Tc-99m 10.7 IV CAROL ANN Blanco Sestamisilvana Stress:Tc-99m 33.0 IV CAROL ANN Blanco Sestamibi Rest: 09-Feb-2023 60 Discovery 630 Stress: 09-Feb-2023 30 Discovery 630 0.4mg Lexiscan. Supine position only as patient was unable to lay prone. SPECT RESULTS Technical Quality: Excellent Raw Data Analysis: Normal Image Corrections: No attenuation or motion correction applied Summed Stress Score: 5 Summed Rest Score: 3 Summed Difference Score: 2 PERFUSION FINDINGS Medium sized area of mostly fixed perfusion defect is noted in the apical, apical septal and apical anterior . This is consistent with medium sized area of prior infarct in the LAD territory with minimal evelio-infarct ischemia. FUNCTIONAL RESULTS (calculated via Gated SPECT) Stress Image LV EF (%): 69 Stress EDV (mL):72 TID: 0.88 Stress ESV (mL):22 FUNCTIONAL FINDINGS: There is normal left ventricular systolic function. IMPRESSIONS 1. Medium sized area of evelio-infarct with minimal evelio-infarct ischemia in the LAD territory. 2. LV systolic function is normal. Chris Art MD (Electronically Signed) Final Date: 09 February 2023 14:12 S
[2023-02-09] MEDS: regadenoson 0.4 Mg/5 ml Syringe IVP (10:35)
[2023-02-09] MEDS: ondansetron 2 mg/ML SDV 2 mL 4 MG IVP (10:42)
[2023-02-09 10:52] VITALS: BP 128/73; PULSE 64
== END 2023-02-09 08:49 | disposition home or self-care (01) ==
LOC: CDL 08:49
PROVIDERS: PCP Family Medicine; Visit Provider Internal Medicine
DX: R07.9 Chest pain, unspecified (principal); R06.02 Shortness of breath
CPT/HCPCS: 36415; 78452; 93017; 96374; 96375; A9500; J2405; J2785

== ENCOUNTER → 2023-02-14 15:38 | Outpatient (BNVA) | payer MEDICARE, SELFPAY | PROVIDERS: PCP Family Medicine; Visit Provider Internal Medicine | DX: Z45.010 Encounter for checking and testing of cardiac pacemaker pulse generator [battery] (principal) | CPT/HCPCS: 93296 ==

== ENCOUNTER → 2023-04-20 13:12 | Outpatient (BNVA) | payer MEDICARE, SELFPAY | PROVIDERS: PCP Family Medicine; Visit Provider Internal Medicine Cardiovascular Disease | DX: R07.9 Chest pain, unspecified (principal); Z95.0 Presence of cardiac pacemaker; Z79.01 Long term (current) use of anticoagulants; I50.9 Heart failure, unspecified; I48.11 Longstanding persistent atrial fibrillation; Z87.891 Personal history of nicotine dependence | CPT/HCPCS: 99214 ==

== ENCOUNTER → 2023-07-26 14:48 | Outpatient (BNVA) | payer MEDICARE, SELFPAY | PROVIDERS: PCP Family Medicine; Visit Provider Internal Medicine | DX: I95.9 Hypotension, unspecified (principal); R42 Dizziness and giddiness; I50.9 Heart failure, unspecified; I48.11 Longstanding persistent atrial fibrillation; Z79.01 Long term (current) use of anticoagulants; Z95.0 Presence of cardiac pacemaker; Z87.891 Personal history of nicotine dependence | CPT/HCPCS: 99214 ==

== ENCOUNTER 2024-01-15 21:38 | Emergency (ER) | payer MEDICARE, SELFPAY ==
--- NOTE | 2024-01-15 21:37 | ECG_ITS ---
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 Measurements Intervals [place] Rate: 89 P: 0 MA: 0 QRS: 54 QRSD: 105 T: -69 QT: 337 QTc: 411 Interpretive Statements Atrial fibrillation with demand V pacing ELECTRONIC VENTRICULAR PACEMAKER -- CONTOUR ANALYSIS BASED ON INTRINSIC RHYTHM POSSIBLE RIGHT VENTRICULAR CONDUCTION DELAY [RSR (QR) IN V1/V2] ST DEVIATION AND MODERATE T-WAVE ABNORMALITY, CONSIDER ANTERIOR ISCHEMIA [-0.1+ mV T-WAVE IN V3/V4] ST DEVIATION AND MODERATE T-WAVE ABNORMALITY, CONSIDER INFERIOR ISCHEMIA [-0.1+ mV T-WAVE IN II/aVF] Compared to ECG 12/25/2021 06:32:42 Atrial fibrillation no longer present Incomplete right bundle-branch block no longer present T-wave abnormality still present Possible ischemia still present Electronically Signed On 01-16-2024 21:54:47 CDT by Mikey Dillard M.D. [email or web address].AdStage/store/NU/[id number]/[id number] monty
--- NOTE | 2024-01-15 21:37 | ECG_ITS ---
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 Measurements Intervals [place] Rate: 89 P: 0 IA: 0 QRS: 54 QRSD: 105 T: -69 QT: 337 QTc: 411 Interpretive Statements Atrial fibrillation with demand V pacing ELECTRONIC VENTRICULAR PACEMAKER -- CONTOUR ANALYSIS BASED ON INTRINSIC RHYTHM POSSIBLE RIGHT VENTRICULAR CONDUCTION DELAY [RSR (QR) IN V1/V2] ST DEVIATION AND MODERATE T-WAVE ABNORMALITY, CONSIDER ANTERIOR ISCHEMIA [-0.1+ mV T-WAVE IN V3/V4] ST DEVIATION AND MODERATE T-WAVE ABNORMALITY, CONSIDER INFERIOR ISCHEMIA [-0.1+ mV T-WAVE IN II/aVF] Compared to ECG 12/25/2021 06:32:42 Atrial fibrillation no longer present Incomplete right bundle-branch block no longer present T-wave abnormality still present Possible ischemia still present Electronically Signed On 01-16-2024 21:54:36 CDT by Mikey Dillard M.D. [email or web address] CINCOIn[facility].Silatronix/store/NU/[id number] f
--- NOTE | 2024-01-15 21:37 | ECG_ITS ---
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 Measurements Intervals [place] Rate: 89 P: 0 OR: 0 QRS: 54 QRSD: 105 T: -69 QT: 337 QTc: 411 Interpretive Statements Atrial fibrillation with demand V paced rhythm ELECTRONIC VENTRICULAR PACEMAKER -- CONTOUR ANALYSIS BASED ON INTRINSIC RHYTHM POSSIBLE RIGHT VENTRICULAR CONDUCTION DELAY [RSR (QR) IN V1/V2] ST DEVIATION AND MODERATE T-WAVE ABNORMALITY, CONSIDER ANTERIOR ISCHEMIA [-0.1+ mV T-WAVE IN V3/V4] ST DEVIATION AND MODERATE T-WAVE ABNORMALITY, CONSIDER INFERIOR ISCHEMIA [-0.1+ mV T-WAVE IN II/aVF] Compared to ECG 12/25/2021 06:32:42 Atrial fibrillation no longer present Incomplete right bundle-branch block no longer present T-wave abnormality still present Possible ischemia still present Electronically Signed On 01-16-2024 22:10:53 CDT by Mikey Dillard M.D. [email or web address]/[id number]/[id number] millan
[2024-01-15 21:45] VITALS: BP 182/90; PULSE 87; RESP 20; TEMP 36.6; O2SAT 99
--- NOTE | 2024-01-15 21:59 | XRR_ITS ---
PROCEDURE INFORMATION: Exam: XR Chest Exam date and time: 01/15/2024 10:03 PM Age: 83 years old Clinical indication: Other: Palpitations; Prior surgery; Surgery date: 6+ months; Surgery type: Pacemaker TECHNIQUE: Imaging protocol: Radiologic exam of the chest. Views: 1 view. COMPARISON: CR XR chest 1V portable [id number] 01/16/2021 11:03 PM FINDINGS: Tubes, catheters and devices: Two lead pacemaker device. Lungs: Unremarkable. No consolidation. Pleural spaces: Unremarkable. No pleural effusion. No pneumothorax. Heart/Mediastinum: Moderate to large hiatal hernia similar to prior study. Bones/joints: Unremarkable. XR/XR chest 1V portable [id number] IMPRESSION: No acute findings. There is a moderate to large hiatal hernia similar to the prior study.
--- NOTE | 2024-01-15 22:48 | ED_ITS ---
HPI - Arrhythmia/Palpitations 2 General: Chief Complaint: Arrhythmia/Palpitations Stated Complaint: High BP\High Heart Rate Time Seen by Provider: 01/15/24 22:38 Source: patient Mode of arrival: ambulatory Limitations: no limitations History of Present Illness: 83-year-old male has a history of atrial fibs, hypertension and CHF. He states that he has had palpitations throughout the day today states he is felt like his heart was racing with some intermittent he states feeling like heart fluttering he denies any chest pain to me he states his symptoms are improved currently he denies any shortness of breath. He is on metoprolol and Coumadin for his A-fib. He denies any cough denies any fevers. Associated symptoms: Deny nausea or vomiting Review of Systems 2 Const: Denies: fever(s), chills, body aches or change in appetite ENMT: Denies: throat pain or dental pain Card: Reports: palpitations Resp: Denies: dyspnea GI: Denies: abdominal pain, nausea, vomiting or diarrhea Musc: Denies: neck pain or back pain Skin/Breast: Denies: rash Neuro: Denies: headache(s) PFSH ED 2 PFSH: Medical History (Updated 01/16/24 @ 01:41 by Glendy Medellin MD) Warfarin anticoagulation Dizziness TIA (transient ischemic attack) CHF (congestive heart failure) Hypothyroidism SSS (sick sinus syndrome) Atrial fibrillation Surgical History Status cardiac pacemaker Family History Other Cancer Social History Smoking and tobacco/nicotine status: former use of tobacco/nicotine Alcohol intake: never Substance/Drug Use: never Marital status: service: No Current occupational status: retired Physical Exam 2 Const: COMMON NORMALS: patient oriented x3 HENMT: COMMON NORMALS: normocephalic and atraumatic HEAD & SCALP: n ormocephalic and atraumatic Eye: COMMON NORMALS: Equal, round and reactive pupils present and EOMs intact bilaterally PUPIL: Yes Equal, round and reactive pupils present Neck/C-Spine: COMMON NORMALS: full ROM and supple Chest: COMMONS NORMALS: normal inspection of the chest Resp: COMMON NORMALS: normal respiratory effort, No retractions, No use of accessory muscles and clear to auscultation bilaterally AUSCULTATION: clear to auscultation bilaterally Cardio: COMMON NORMALS: regular rate and No murmurs present (Cardio) RATE: regular rate RHYTHM: abnormal rhythm irregularly irregular GI: COMMON NORMALS: Normal to inspection, nondistended, normoactive bowel sounds present, Soft to palpation, non-tender and no masses PALPATION: Yes Soft to palpation Extremity: COMMON NORMALS: normal to inspection and full ROM Neuro: COMMON NORMALS: patient oriented x3, moves all extremities and no focal motor deficits Psych: COMMON NORMALS: mental status grossly normal, Normal thought process present and cooperative THOUGHT PROCESS: Normal thought process present Skin: COMMON NORMALS: no rashes or lesions noted and no wounds GENERAL SKIN EXAM: no rashes or lesions noted Course 2 Vital Signs: Vital signs: Vital Signs Temperature 97.9 F 01/15/24 21:45 Pulse Rate 79 01/16/24 00:29 Respiratory Rate 15 01/16/24 00:29 Blood Pressure 138/92 01/16/24 02:26 Pulse Oximetry 98 01/16/24 00:29 Oxygen Delivery Me thod Nasal Cannula 01/16/24 00:29 Oxygen Flow Rate 3 01/16/24 00:29 MDM - Arrhythmia/Palpitations Medical Decision Making Patient presents here with palpitations, hypertension he had no A-fib here is pressures improved he has no signs of ACS troponins here are negative he feels improved here he is stable for discharge he is follow-up with his conference services coordinator return if worsening. Medical Records I reviewed the patient's medical records. Lab Data I reviewed the patient's lab results. 01/15/24 22:57 01/15/24 22:57 Radiology Impressions Chest X-Ray 01/15/24 21:59 IMPRESSION: No acute findings. There is a moderate to large hiatal hernia similar to the prior study. Laboratory Results WBC 10.12 10^3/uL (3.29-11.43) 01/15/24 22:57 RBC 5.10 10^6/uL (3.85-5.65) 01/15/24 22:57 Hgb 14.00 g/dL (11.27-16.99) 01/15/24 22:57 Hct 45.0 % (37-53) 01/15/24 22:57 MCV 88.2 fl (82-101) 01/15/24 22:57 MCH 27.5 pg (27-33) 01/15/24 22:57 MCHC 31.1 g/dL (30-55) 01/15/24 22:57 RDW 16.4 % (12.1-15.1) H 01/15/24 22:57 Plt Count 198 10^3/cmm (157-399) 01/15/24 22:57 MPV 10.6 fL (7.4-10.4) H 01/15/24 22:57 Neut % (Auto) 78.3 % 01/15/24 22:57 Lymph % (Auto) 14.0 % 01/15/24 22:57 [place] % (Auto) 5.5 % 01/15/24 22:57 Eos % (Auto) 0.4 % 01/15/24 22:57 Baso % (Auto) 0.9 % 01/15/24 22:57 Neut # (Auto) 7.92 10^3/uL (1.8-7.7) H 01/15/24 22:57 Lymph # (Auto) 1.4 10^3/uL (0.8-4.8) 01/15/24 22:57 [place] # (Auto) 0.6 10^3/uL (0.2-0.9) 01/15/24 22:57 Eos # (Auto) 0.0 10^3/uL (0.0-0.8) 01/15/24 22:57 Baso # (Auto) 0.1 10^3/uL (0.0-0.1) 01/15/24 22:57 Nucleated RBC % (auto) 0 % 01/15/24 22:57 Nucleated RBCs # 0.0 /100WBC 01/15/24 22:57 PT 22.40 SECONDS (12.1-14.9) H 01/15/24 22:57 INR 1.89 (0.8-1.2) H 01/15/24 22:57 Sodium 139 mmol/L (136-145) 01/15/24 22:57 Potassium 4.1 mmol/L (3.5-5.1) 01/15/24 22:57 Chloride 99 mmol/L (98-107) 01/15/24 22:57 Carbon Dioxide 27 mmol/L (22-29) 01/15/24 22:57 Anion Gap 17.1 (5-19) 01/15/24 22:57 BUN 17 mg/dL (8-23) 01/15/24 22:57 Creatinine 1.0 mg/dL (0.7-1.2) 01/15/24 22:57 GFR Calculation Not Reportable 01/15/24 22:57 Glucose 116 mg/dL (65-115) H 01/15/24 22:57 Calculated Osmolality 291 mOsm/kg (285-295) 01/15/24 22:57 Lactic Acid 1.6 mmol/L (0.5-2.2) 01/15/24 22:57 Calcium 9.2 mg/dL (8.5-10.5) 01/15/24 22:57 Magnesium 2.2 mg/dL (1.7-2.3) 01/15/24 22:57 Total Bilirubin 0.7 mg/dL (0.15-1.2) 01/15/24 22:57 AST 13 U/L (0-40) 01/15/24 22:57 ALT 7 U/L (0-41) 01/15/24 22:57 Alkaline Phosphatase 120 U/L (40-130) 01/15/24 22:57 Troponin T Baseline 22 ng/L (0-15) H 01/15/24 22:57 Troponin T 120 Minute 21.53 ng/L (0-15) H 01/16/24 01:04 Delta Troponin T -0.47 ABS# (0-10) L 01/16/24 01:04 C-Reactive Protein 3.0 mg/L (0.0-4.9) 01/15/24 22:57 NT-Pro-B Natriuret Pep 3132 pg/mL (0-450) H 01/15/24 22:57 Total Protein 7.7 g/dL (6.6-8.7) 01/15/24 22:57 Albumin 4.3 g/dL (3.5-5.2) 01/15/24 22:57 Globulin 3.4 g/dL (1.3-4.6) 01/15/24 22:57 TSH 6.27 uIU/mL (0.27-4.20) H 01/15/24 22:57 All radiology interpretation(s) finalized by discharge Discharge Plan Discharge Patient Disposition: Home Clinical Impression: Palpitations, Hypertension Condition: Stable Prescriptions: No Action tamsulosin 0.4 mg capsule 0.4 mg PO DAILY docusate sodium [Colace] 100 mg capsule 100 mg PO BID atorvastatin 10 mg tablet 5 mg PO DAILY quetiapine 25 mg tablet 12.5 mg PO DAILY memantine 10 mg tablet 10 mg PO BID levothyroxine 125 mcg capsule 125 mcg PO DAILY aspirin [Aspir-81] 81 mg tablet,delayed release (DR/EC) 81 mg PO DAILY metoprolol tartrate 25 mg tablet 25 mg PO DIRECTED Qty: 225 3RF Rx Instructions: Take 1 and 1/2 (37.5) tabs in the morning and 1 tab (25mg) in the evening omeprazole 20 mg capsule,delayed release(DR/EC) 20 mg PO DAILY warfarin 2 mg tablet 2 mg PO DAILY Protocol: Dose Management Condition: Monday Dose/Route: 3 mg Instruction: 1 x 3 mg tablet Condition: Monday Dose/Route: 3 mg Instruction: 1 x 3 mg tablet Condition: Monday Dose/Route: 3 mg Instruction: 1 x 3 mg tablet Condition: Monday Dose/Route: 2 mg Instruction: 1 x 2 mg tablet Condition: Dose/Route: 2 mg Instruction: 1 x 2 mg tablet Condition: Monday Dose/Route: 3 mg Instruction: 1 x 3 mg tablet Condition: Monday Dose/Route: 3 mg Instruction: 1 x 3 mg tablet Protocol Text: Adjustment Start Date: Monday01/15/24 INR Value: 2.3 INR Date: 01/15/24 Recheck Date: 01/22/24 warfarin 3 mg tablet 3 mg PO DAILY Protocol: Dose Management Condition: Monday Dose/Route: 3 mg Instruction: 1 x 3 mg tablet Condition: Monday Dose/Route: 3 mg Instruction: 1 x 3 mg tablet Condition: Monday Dose/Route: 3 mg Instruction: 1 x 3 mg tablet Condition: Monday Dose/Route: 2 mg Instruction: 1 x 2 mg tablet Condition: Dose/Route: 2 mg Instruction: 1 x 2 mg tablet Condition: Monday Dose/Route: 3 mg Instruction: 1 x 3 mg tablet Condition: Monday Dose/Route: 3 mg Instruction: 1 x 3 mg tablet Protocol Text: Adjustment Start Date: Monday01/15/24 INR Value: 2.3 INR Date: 01/15/24 Recheck Date: 01/22/24 Discharge Orders: Discharge ED (Routine); Ordered 01/16/24 Ordered By: Glendy Medellin Referrals: Ramon Verde MD [Primary Care Provider] - Discharge Diet: Advance as tolerated Discharge Activity: Resume usual activity Patient Instructions: Heart Palpitations (ED) Coding Level of Care Code ED Prize Coordinator for Siria Candelario
[2024-01-15] MEDS: labetalol 5 mg/mL SDV 20mL 10 MG IVP (22:58)
[2024-01-15 23:01] VITALS: BP 164/101; PULSE 76; RESP 16; O2SAT 100
[2024-01-15 23:06] LABS: Basophils # 0.1 10^3/uL (0.0-0.1); Basophils % 0.9 %; Eosinophils % 0.4 %; Lymphocytes # 1.4 10^3/uL (0.8-4.8); Mean Corpuscular HGB Conc 31.1 g/dL (30-55); Mean Corpuscular Hemoglobin 27.5 pg (27-33); Mean Corpuscular Volume 88.2 fl (82-101); Mean Platelet Volume 10.6 fL (7.4-10.4); Monocytes # 0.6 10^3/uL (0.2-0.9); Monocytes % 5.5 %; Neutrophils # 7.92 10^3/uL (1.8-7.7); Neutrophils % 78.3 %; Nucleated Red Blood Cells % 0 %; Platelet Count 198 10^3/cmm (157-399); Red Cell Distribution Width 16.4 % (12.1-15.1); White Blood Count 10.12 10^3/uL (3.29-11.43)
[2024-01-15 23:14] LABS: INR 1.89 (0.8-1.2)
[2024-01-15 23:20] LABS: Troponin(5th) Baseline 22 ng/L (0-15)
[2024-01-15 23:21] LABS: Lactic Sepsis W/Reflex 1.6 mmol/L (0.5-2.2)
[2024-01-15] MEDS: hyDRALAzine 20 mg/mL INJ 1 mL 10 MG IVP (23:26)
[2024-01-15 23:38] LABS: Alanine Aminotransferase 7 U/L (0-41); Albumin Level 4.3 g/dL (3.5-5.2); Alkaline Phosphatase 120 U/L (40-130); Anion Gap 17.1 (5-19); Aspartate Amino Transferase 13 U/L (0-40); Blood Urea Nitrogen 17 mg/dL (8-23); Calcium 9.2 mg/dL (8.5-10.5); Carbon Dioxide 27 mmol/L (22-29); Chloride 99 mmol/L (98-107); Creatinine Clr Calc Pharmacy 56.6882; Globulin 3.4 g/dL (1.3-4.6); Glucose 116 mg/dL (65-115); Magnesium 2.2 mg/dL (1.7-2.3); NT Pro B Type Natriuretic Pept 3132 pg/mL (0-450); Osmolality Calculated 291 mOsm/kg (285-295); Potassium 4.1 mmol/L (3.5-5.1); Sodium 139 mmol/L (136-145); Thyroid Stimulating Hormone 6.27 uIU/mL (0.27-4.20); Total Bilirubin 0.7 mg/dL (0.15-1.2); Total Protein 7.7 g/dL (6.6-8.7)
[2024-01-16 00:29] VITALS: BP 162/96; PULSE 79; RESP 15; O2SAT 98
[2024-01-16] MEDS: labetalol 5 mg/mL SDV 20mL 10 MG IVP (00:29)
[2024-01-16 01:32] LABS: Troponin 5 2HR 21.53 ng/L (0-15)
[2024-01-16 01:33] LABS: Troponin 5 2HR Delta -0.47 ABS# (0-10)
[2024-01-16 02:26] VITALS: BP 138/92
[2024-01-16 02:27] VITALS: BP 138/92
== END 2024-01-16 02:06 | disposition home or self-care (01) ==
PROVIDERS: Emergency Medicine; Emergency Provider Emergency Medicine; PCP Family Medicine
DX: R00.2 Palpitations (principal); Z79.82 Long term (current) use of aspirin; Z79.01 Long term (current) use of anticoagulants; Z86.73 Personal history of transient ischemic attack (TIA), and cerebral infarction without residual deficits; I50.9 Heart failure, unspecified; Z95.0 Presence of cardiac pacemaker; Z87.891 Personal history of nicotine dependence; I11.0 Hypertensive heart disease with heart failure
CPT/HCPCS: 71045; 80053; 83605; 83735; 83880; 84443; 84484; 85025; 85610; 86140; 93005; 96374; 96375; 96376; 99285; J0360; J3490

== ENCOUNTER 2024-01-18 21:46 | Emergency (ER) | payer MEDICARE, SELFPAY ==
[2024-01-18 21:48] VITALS: BP 160/88; PULSE 81; RESP 18; TEMP 36.6; O2SAT 98
--- NOTE | 2024-01-18 21:48 | ECG_ITS ---
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 Measurements Intervals [place] Rate: 76 P: 0 MO: 0 QRS: 55 QRSD: 96 T: -72 QT: 363 QTc: 411 Interpretive Statements ELECTRONIC VENTRICULAR PACEMAKER -- CONTOUR ANALYSIS BASED ON INTRINSIC RHYTHM POSSIBLE RIGHT VENTRICULAR CONDUCTION DELAY [RSR (QR) IN V1/V2] ST DEVIATION AND MODERATE T-WAVE ABNORMALITY, CONSIDER ANTEROLATERAL ISCHEMIA [-0.1+ mV T-WAVE IN V3-V6] ST DEVIATION AND MODERATE T-WAVE ABNORMALITY, CONSIDER INFERIOR ISCHEMIA [-0.1+ mV T-WAVE IN II/aVF] Compared to ECG 01/15/2024 21:37:14 Atrial fibrillation no longer present T-wave abnormality still present Possible ischemia still present Electronically Signed On 01-19-2024 18:45:57 CDT by Chris Art M.D. [email or web address] Servicesgreenwood leflore hospitalMM Local Foodsselect medical [facility].Edvivo/store/NU/[id number] millan
--- NOTE | 2024-01-18 21:58 | XRR_ITS ---
PROCEDURE INFORMATION: Exam: XR Chest Exam date and time: 01/18/2024 10:20 PM Age: 83 years old Clinical indication: Chest wall pain; Prior surgery; Surgery date: 6+ months; Surgery type: Pacemaker; Additional info: Chest pain TECHNIQUE: Imaging protocol: Radiologic exam of the chest. Views: 1 view. COMPARISON: CR (CHEST, ) 01/15/2024 10:03 PM FINDINGS: Tubes, catheters and devices: Left subclavian transvenous atrioventricular pacemaker is in expected position. Lungs: Lungs are hyperinflated. Clear parenchyma. Pleural spaces: No pleural effusion. No pneumothorax. Heart/Mediastinum: Unchanged moderate cardiomegaly with prominent right heart border. Bones/joints: Age appropriate. XR/XR chest 1V portable [id number] IMPRESSION: Hyperinflated but clear lungs. Stable moderate cardiomegaly.
[2024-01-18 22:40] LABS: Basophils # 0.1 10^3/uL (0.0-0.1); Basophils % 0.9 %; Eosinophils # 0.2 10^3/uL (0.0-0.8); Eosinophils % 2.6 %; Hematocrit 46.5 % (37-53); Lymphocytes # 1.3 10^3/uL (0.8-4.8); Lymphocytes % 20.6 %; Mean Corpuscular Hemoglobin 27.6 pg (27-33); Mean Corpuscular Volume 89.3 fl (82-101); Mean Platelet Volume 10.2 fL (7.4-10.4); Monocytes # 0.4 10^3/uL (0.2-0.9); Monocytes % 6.1 %; Nucleated Red Blood Cells % 0 %; Platelet Count 204 10^3/cmm (157-399); Red Blood Count 5.21 10^6/uL (3.85-5.65); Red Cell Distribution Width 16.7 % (12.1-15.1); White Blood Count 6.52 10^3/uL (3.29-11.43)
--- NOTE | 2024-01-18 22:50 | ED_ITS ---
HPI - Chest Pain 2 General: Chief Complaint: Chest Pain Stated Complaint: Bp up and down chest pressure Time Seen by Provider: 01/18/24 22:17 History of Present Illness: Patient presents to the ER with complaints of blood pressure going up and going down and having intermittent chest pressure off and on throughout the day. Patient stated his blood pressure was up to the 170s and 180s today and usually runs in the 140s, he was seen here not too long ago for the same thing but they discharged home with no changes. Patient is not currently actively having chest pain at this moment. Review of Systems 2 General: Reports: 10 or more systems reviewed and unremarkable except in HPI and below PFSH ED 2 PFSH: Medical History (Updated 01/19/24 @ 01:40 by Ismael Nice DO) Warfarin anticoagulation Dizziness TIA (transient ischemic attack) CHF (congestive heart failure) Hypothyroidism SSS (sick sinus syndrome) Atrial fibrillation Surgical History Status cardiac pacemaker Family History Other Cancer Social History Smoking and tobacco/nicotine status: former use of tobacco/nicotine Alcohol intake: never Substance/Drug Use: never Marital status: service: No Current occupational status: retired Physical Exam 2 Const: COMMON NORMALS: no acute distress, average body habitus, patient oriented x3, no limitations, healthy appearing, alert and well nourished HENMT: COMMON NORMALS: normocephalic, atraumatic, hearing grossly normal bilaterally, external ears normal, Normal external nose present and moist oral mucous membranes HEAD & SCALP: normocephalic and atraumatic NOSE: Normal external nose present EXTERNAL EAR: Yes external ears normal Neck/C-Spine: COMMON NORMALS: no JVD Chest: COMMONS NORMALS: normal inspection of the chest and normal palpation of entire chest wall Resp: COMMON NORMALS: normal respiratory effort, No retractions, No use of accessory muscles and clear to auscultation bilaterally AUSCULTATION: clear to auscultation bilaterally Cardio: COMMON NORMALS: no JVD, regular rate, regular rhythm, S1 normal heart sound present, S2 normal heart sound present, No gallops present (Cardio), No clicks present (Cardio), No murmurs present (Cardio) and No rub (Cardio) R ATE: regular rate RHYTHM: regular rhythm HEART SOUNDS: S1 normal heart sound present and S2 normal heart sound present GI: COMMON NORMALS: Normal to inspection, nondistended, normoactive bowel sounds present, Soft to palpation, non-tender, No hepatosplenomegaly present and no masses PALPATION: Yes Soft to palpation and Yes No hepatosplenomegaly present Neuro: COMMON NORMALS: patient oriented x3 SENSORIUM/ORIENTATION: Yes alert Course 2 Vital Signs: Vital signs: Vital Signs Temperature 97.8 F 01/18/24 21:48 Pulse Rate 63 01/19/24 00:59 Respiratory Rate 16 01/19/24 00:59 Blood Pressure 157/93 01/19/24 00:59 Pulse Oximetry 97 01/19/24 00:59 Oxygen Delivery Me thod Nasal Cannula 01/18/24 21:48 MDM - Chest Pain Medical Decision Making Patient had serial lab work that included serial troponins, chest x-ray and serial EKGs, all of was unremarkable, patient's blood pressure stayed stable and his heart rate stayed stable during his stay in ER. Patient be discharged and referred back to his family practice doctor. Differential Diagnosis Unlikely acute massive pulmonary embolism, acute respiratory failure, acute myocardial infarction, cardiac arrest or sudden cardiac Medical Records I reviewed the patient's medical records. Lab Data I reviewed the patient's lab results. 01/18/24 22:35 01/18/24 22:35 Radiology Impressions Chest X-Ray 01/18/24 21:58 IMPRESSION: Hyperinflated but clear lungs. Stable moderate cardiomegaly. Laboratory Results WBC 6.52 10^3/uL (3.29-11.43) 01/18/24 22:35 RBC 5.21 10^6/uL (3.85-5.65) 01/18/24 22:35 Hgb 14.40 g/dL (11.27-16.99) 01/18/24 22:35 Hct 46.5 % (37-53) 01/18/24 22:35 MCV 89.3 fl (82-101) 01/18/24 22:35 MCH 27.6 pg (27-33) 01/18/24 22:35 MCHC 31.0 g/dL (30-55) 01/18/24 22:35 RDW 16.7 % (12.1-15.1) H 01/18/24 22:35 Plt Count 204 10^3/cmm (157-399) 01/18/24 22:35 MPV 10.2 fL (7.4-10.4) 01/18/24 22:35 Neut % (Auto) 69.0 % 01/18/24 22:35 Lymph % (Auto) 20.6 % 01/18/24 22:35 Delta % (Auto) 6.1 % 01/18/24 22:35 Eos % (Auto) 2.6 % 01/18/24 22:35 Baso % (Auto) 0.9 % 01/18/24 22: Neut # (Auto) 4.50 10^3/uL (1.8-7.7) 01/18/24 22:35 Lymph # (Auto) 1.3 10^3/uL (0.8-4.8) 01/18/24 22:35 Delta # (Auto) 0.4 10^3/uL (0.2-0.9) 01/18/24 22:35 Eos # (Auto) 0.2 10^3/uL (0.0-0.8) 01/18/24 22:35 Baso # (Auto) 0.1 10^3/uL (0.0-0.1) 01/18/24 22:35 Nucleated RBC % (auto) 0 % 01/18/24 22: Nucleated RBCs # 0.0 /100WBC 01/18/24 22:35 PT 23.30 SECONDS (12.1-14.9) H 01/18/24 22:35 INR 1.99 (0.8-1.2) H 01/18/24 22:35 Sodium 135 mmol/L (136-145) L 01/18/24 22:35 Potassium 3.6 mmol/L (3.5-5.1) 01/18/24 22:35 Chloride 97 mmol/L (98-107) L 01/18/24 22:35 Carbon Dioxide 27 mmol/L (22-29) 01/18/24 22:35 Anion Gap 14.6 (5-19) 01/18/24 22:35 BUN 17 mg/dL (8-23) 01/18/24 22:35 Creatinine 1.0 mg/dL (0.7-1.2) 01/18/24 22:35 GFR Calculation Not Reportable 01/18/24 22:35 Glucose 110 mg/dL (65-115) 01/18/24 22:35 Calculated Osmolality 282 mOsm/kg (285-295) L 01/18/24 22:35 Calcium 9.0 mg/dL (8.5-10.5) 01/18/24 22:35 Total Bilirubin 0.9 mg/dL (0.15-1.2) 01/18/24 22:35 AST 12 U/L (0-40) 01/18/24 22:35 ALT 6 U/L (0-41) 01/18/24 22:35 Alkaline Phosphatase 114 U/L (40-130) 01/18/24 22:35 Troponin T Baseline 24 ng/L (0-15) H 01/18/24 22:35 Troponin T 120 Minute 19.79 ng/L (0-15) H 01/19/24 00:28 Delta Troponin T -4.21 ABS# (0-10) L 01/19/24 00:28 Total Protein 8.3 g/dL (6.6-8.7) 01/18/24 22:35 Albumin 4.1 g/dL (3.5-5.2) 01/18/24 22:35 Globulin 4.2 g/dL (1.3-4.6) 01/18/24 22:35 All radiology interpretation(s) finalized by discharge Discharge Plan Discharge Patient Disposition: Home Clinical Impression: Chest pain Qualifiers: Chest pain type: unspecified Qualified Code(s): R07.9 - Chest pain, unspecified Hypertension Qualifiers: Hypertension type: unspecified Qualified Code(s): I10 - Essential (primary) hypertension Condition: Stable Prescriptions: No Action tamsulosin 0.4 mg capsule 0.4 mg PO DAILY docusate sodium [Colace] 100 mg capsule 100 mg PO BID atorvastatin 10 mg tablet 5 mg PO DAILY quetiapine 25 mg tablet 12.5 mg PO DAILY memantine 10 mg tablet 10 mg PO BID levothyroxine 125 mcg capsule 125 mcg PO DAILY aspirin [Aspir-81] 81 mg tablet,delayed release (DR/EC) 81 mg PO DAILY metoprolol tartrate 25 mg tablet 25 mg PO DIRECTED Qty: 225 3RF Rx Instructions: Take 1 and 1/2 (37.5) tabs in the morning and 1 tab (25mg) in the evening omeprazole 20 mg capsule,delayed release(DR/EC) 20 mg PO DAILY warfarin 2 mg tablet 2 mg PO DAILY Protocol: Dose Management Condition: Monday Dose/Route: 3 mg Instruction: 1 x 3 mg tablet Condition: Monday Dose/Route: 3 mg Instruction: 1 x 3 mg tablet Condition: Monday Dose/Route: 3 mg Instruction: 1 x 3 mg tablet Condition: Monday Dose/Route: 2 mg Instruction: 1 x 2 mg tablet Condition: Dose/Route: 2 mg Instruction: 1 x 2 mg tablet Condition: Monday Dose/Route: 3 mg Instruction: 1 x 3 mg tablet Condition: Monday Dose/Route: 3 mg Instruction: 1 x 3 mg tablet Protocol Text: Adjustment Start Date: Monday01/15/24 INR Value: 2.3 INR Date: 01/15/24 Recheck Date: 01/22/24 warfarin 3 mg tablet 3 mg PO DAILY Protocol: Dose Management Condition: Monday Dose/Route: 3 mg Instruction: 1 x 3 mg tablet Condition: Monday Dose/Route: 3 mg Instruction: 1 x 3 mg tablet Condition: Monday Dose/Route: 3 mg Instruction: 1 x 3 mg tablet Condition: Monday Dose/Route: 2 mg Instruction: 1 x 2 mg tablet Condition: Dose/Route: 2 mg Instruction: 1 x 2 mg tablet Condition: Monday Dose/Route: 3 mg Instruction: 1 x 3 mg tablet Condition: Monday Dose/Route: 3 mg Instruction: 1 x 3 mg tablet Protocol Text: Adjustment Start Date: Monday01/15/24 INR Value: 2.3 INR Date: 01/15/24 Recheck Date: 01/22/24 Discharge Orders: Discharge ED (Routine); Ordered 01/19/24 Ordered By: Ismael Nice Referrals: Ramon Verde MD [Primary Care Provider] - 1 week Patient Instructions: Chest Pain (ED), Hypertension Activity Restrictions/Additional Instructions: Evaluation in the ER today was unremarkable. Your blood pressure stayed within reasonable limits. Your chest pain workup did not show any acute causes of your chest pain. Please keep your appointment on Monday with your primary care doctor for further evaluation and treatment. Coding Level of Care Code ED Financial Institution Manager for Siria Candelario
[2024-01-18 22:53] VITALS: BP 147/82
[2024-01-18 22:55] LABS: INR 1.99 (0.8-1.2)
[2024-01-18 23:03] VITALS: BP 137/80; PULSE 65; RESP 16; O2SAT 95
[2024-01-18 23:06] LABS: Alanine Aminotransferase 6 U/L (0-41); Albumin Level 4.1 g/dL (3.5-5.2); Alkaline Phosphatase 114 U/L (40-130); Anion Gap 14.6 (5-19); Aspartate Amino Transferase 12 U/L (0-40); Blood Urea Nitrogen 17 mg/dL (8-23); Carbon Dioxide 27 mmol/L (22-29); Chloride 97 mmol/L (98-107); Creatinine Clr Calc Pharmacy 56.6882; Globulin 4.2 g/dL (1.3-4.6); Glucose 110 mg/dL (65-115); Osmolality Calculated 282 mOsm/kg (285-295); Potassium 3.6 mmol/L (3.5-5.1); Sodium 135 mmol/L (136-145); Total Bilirubin 0.9 mg/dL (0.15-1.2); Total Protein 8.3 g/dL (6.6-8.7)
[2024-01-18 23:10] LABS: Troponin(5th) Baseline 24 ng/L (0-15)
[2024-01-19 00:59] VITALS: BP 157/93; PULSE 63; RESP 16; O2SAT 97
[2024-01-19 01:05] LABS: Troponin 5 2HR 19.79 ng/L (0-15); Troponin 5 2HR Delta -4.21 ABS# (0-10)
[2024-01-19 01:47] VITALS: BP 157/93; PULSE 63; RESP 16; O2SAT 97
== END 2024-01-19 02:05 | disposition home or self-care (01) ==
PROVIDERS: Emergency Provider Emergency Medicine; PCP Family Medicine
DX: R07.89 Other chest pain (principal); I11.0 Hypertensive heart disease with heart failure; I50.9 Heart failure, unspecified; I48.91 Unspecified atrial fibrillation; Z79.899 Other long term (current) drug therapy; Z79.82 Long term (current) use of aspirin; Z79.01 Long term (current) use of anticoagulants; Z87.891 Personal history of nicotine dependence; Z86.73 Personal history of transient ischemic attack (TIA), and cerebral infarction without residual deficits; Z95.0 Presence of cardiac pacemaker
CPT/HCPCS: 71045; 80053; 84484; 85025; 85610; 93005; 99285

== ENCOUNTER → 2024-01-31 15:14 | Outpatient (BNVA) | payer MEDICARE, SELFPAY | PROVIDERS: PCP Family Medicine; Visit Provider Internal Medicine | DX: I95.9 Hypotension, unspecified (principal); R42 Dizziness and giddiness; I50.9 Heart failure, unspecified; I49.5 Sick sinus syndrome; I48.11 Longstanding persistent atrial fibrillation; Z79.01 Long term (current) use of anticoagulants; R07.9 Chest pain, unspecified | CPT/HCPCS: 99214 ==

== ENCOUNTER → 2024-04-24 10:05 | Outpatient (BNVA) | payer MEDICARE, SELFPAY | PROVIDERS: PCP Family Medicine; Visit Provider Internal Medicine | DX: Z45.010 Encounter for checking and testing of cardiac pacemaker pulse generator [battery] (principal) | CPT/HCPCS: 93296 ==